=== PATIENT | female | born 1960 | race Caucasian/White ===

== ENCOUNTER 2017-11-27 14:10 | Emergency (ER) | payer BC ==
[2017-11-27 14:22] VITALS: BP 132/72
--- NOTE | 2017-11-27 14:44 | UC ---
Lety Oakes Emily, scribed for William Lund MD on 11/27/17 at 1437 . General HPI - HPI Summary HPI Summary: This patient is a 56 year old F presenting to urgent care with a chief complaint of sinus pressure that began 3 days ago. The patient rates the pain 2/ 10 in severity. Symptoms aggravated by nothing. Symptoms alleviated by nothing. Patient reports SMITH, vertigo, nausea, umbilical abd pain, loose stool, and fatigue. Patient denies fever, ear pain, myalgia, weakness, and numbness. - History of Current Complaint Chief Complaint: UCRespiratory Stated Complaint: SINUS ISSUE NAUSEA Time Seen by Provider: 11/27/17 14:28 Hx Obtained From: Patient Onset/Duration: Sudden Onset, Lasting Days Timing: Constant Onset Severity: Mild Current Severity: Mild Pain Intensity: 2 Character: Pressure Aggravating: Nothing Alleviating: Nothing Associated Signs & Symptoms: Positive: Headache, Nausea, Other - Positive vertigo and fatigue. Negative ear pain and myalgia. Negative: Fever - Allergy/Home Medications Allergies/Adverse Reactions: Allergies Allergy/AdvReac Type Severity Reaction Status Date / Time Morphine Allergy Severe Rash Verified 11/27/17 14:23 Prochlorperazine Allergy Severe DYSTONIC Verified 11/27/17 14:23 [From Compazine] REACTION, LIGHT SENSITIVITY Home Medications: Home Medications Yypkywt-Fcargptfbsafx-Iasmnpiz [Excedrin Extra Strength 250-250-65 mg] 1 tab PO DAILY PRN 11/27/17 [History Confirmed 11/27/17] Pseudoephedrine HCL ER TAB* [Sudafed 12 Hour*] 1 tab PO DAILY PRN 11/27/17 [ History Confirmed 11/27/17] PMH/Surg Hx/FS Hx/Imm Hx Previously Healthy: No Respiratory History: Asthma Neurological History: Migraine - Surgical History Surgical History: Yes Surgery Procedure, Year, and Place: TONSILLECTOMY, X2 - Family History Known Family History: Positive: Cardiac Disease, Hypertension - Social History Occupation: Employed Full-time Lives: With Family Alcohol Use: Occasionally Substance Use Type: None Smoking Status (MU): Never Smoked Tobacco - Immunization History Most Recent Influenza Vaccination: none Most Recent Tetanus Shot: unsure Most Recent Pneumonia Vaccination: no Review of Systems Constitutional: Fatigue, Other - Negative fever ENT: Sinus Pain/Tenderness, Other - Negative ear ache Gastrointestinal: Abdominal Pain, Nausea, Other - Positive loose stool Musculoskeletal: Other: - Negative myalgia Neurological: Headache, Other - Positive vertigo. Negative weakness and numbness All Other Systems Reviewed And Are Negative: Yes Physical Exam Triage Information Reviewed: Yes Vital Signs: Initial Vital Signs Temp 98.8 F 11/27/17 14:12 Pulse 78 11/27/17 14:12 Resp 16 11/27/17 14:12 BP 132/72 11/27/17 14:12 Pulse Ox 98 11/27/17 14:12 Vital Signs Reviewed: Yes - Additional Comments General: well-appearing, no pain distress Skin: warm, color reflects adequate perfusion, dry Head: normal Eyes: EOMI, MICHELE ENT: positive rhinorrhea Neck: supple, nontender Respiratory: CTA, breath sounds present Cardiovascular: RRR Abdomen: soft, nontender Bowel: present Musculoskeletal: normal, strength/ROM intact Neurological: normal, sensory/motor intact, A&O x3 Psychological: affect/mood appropriate Course/Dx - Differential Dx - Multi-Symptom Provider Diagnoses: SINUSITIS. VERTIGO Discharge - Discharge Plan Condition: Stable Disposition: HOME Prescriptions: Amoxicillin/Clavulanate TAB* [Augmentin TAB 875*] 875 mg PO BID #20 tab Meclizine HCl [Meclizine 25] 25 mg PO Q6H PRN #10 tab PRN Reason: Dizziness Ondansetron ODT TAB* [Zofran 4 MG Odt TAB*] 4 mg PO Q6H PRN #10 tab.odt PRN Reason: Nausea Patient Education Materials: Sinusitis (ED), Vertigo (ED) Referrals: Marycarmen Carney MD [Primary Care Provider] - Additional Instructions: FOLLOW UP WITH YOUR DOCTOR. GET RECHECKED FOR ANY WORSENING OF YOUR CONDITION OR QUESTIONS OR CONCERNS. The documentation as recorded by the Lety lora Emily accurately reflects the service I personally performed and the decisions made by me, William Lund MD.
== END 2017-11-27 14:50 | disposition home or self-care (01) ==
LOC: UCEAST 14:10
DX: J32.9 Chronic sinusitis, unspecified (principal); R42 Dizziness and giddiness; R11.0 Nausea; R53.83 Other fatigue; J45.909 Unspecified asthma, uncomplicated; G43.909 Migraine, unspecified, not intractable, without status migrainosus; Z90.89 Acquired absence of other organs; Z88.5 Allergy status to narcotic agent; Z88.8 Allergy status to other drugs, medicaments and biological substances
CPT/HCPCS: 99212; G0463

== ENCOUNTER 2019-02-27 14:24 | Emergency (ER) | payer BC ==
[2019-02-27 14:41] VITALS: BP 136/69
--- NOTE | 2019-02-27 15:46 | UC ---
Respiratory Complaint HPI - HPI Summary HPI Summary: SEVERAL WEEKS OF PERSISTENT COUGH AND PND. NO FEVER, N/V/D. NO EAR PAIN OR ST. SX NOT GETTING WORSE OR BETTER. HAS KNOWN H/O ALLERGIES. STARTED TAKING CLARITIN JUST TODAY. - History of Current Complaint Chief Complaint: UCRespiratory Stated Complaint: COUGH Time Seen by Provider: 02/27/19 14:39 Hx Obtained From: Patient Onset/Duration: Gradual Onset, Lasting Weeks, Still Present Timing: Constant Severity Initially: Moderate Severity Currently: Moderate Pain Intensity: 0 Pain Scale Used: 0-10 Numeric Character: Cough: Nonproductive Aggravating Factors: Nothing Alleviating Factors: Nothing Associated Signs And Symptoms: Positive: Nasal Congestion. Negative: Dyspnea, Fever, Chills, Wheezing - Allergies/Home Medications Allergies/Adverse Reactions: Allergies Allergy/AdvReac Type Severity Reaction Status Date / Time morphine Allergy Rash Verified 02/27/19 14:41 prochlorperazine Allergy Altered Verified 02/27/19 14:41 [From Compazine] Mental Status PMH/Surg Hx/FS Hx/Imm Hx Respiratory History: Asthma - Surgical History Surgical History: Yes Surgery Procedure, Year, and Place: TONSILLECTOMY, X2, wisdom teeth' - Family History Known Family History: Positive: Cardiac Disease, Hypertension - Social History Alcohol Use: Occasionally Substance Use Type: None Smoking Status (MU): Never Smoked Tobacco - Immunization History Most Recent Influenza Vaccination: none Most Recent Tetanus Shot: unsure Most Recent Pneumonia Vaccination: no Review of Systems All Other Systems Reviewed And Are Negative: Yes Constitutional: Positive: Negative ENT: Positive: Nasal Discharge, Other - POST NASAL DRAINAGE Respiratory: Positive: Cough Cardiovascular: Positive: Negative Gastrointestinal: Positive: Negative Physical Exam Triage Information Reviewed: Yes Appearance: Well-Appearing, No Pain Distress, Well-Nourished Vital Signs: Initial Vital Signs Temp 98.8 F 02/27/19 14:36 Pulse 73 02/27/19 14:36 Resp 16 02/27/19 14:36 BP 136/69 02/27/19 14:36 Pulse Ox 96 02/27/19 14:36 Vital Signs Reviewed: Yes Eyes: Positive: Conjunctiva Clear ENT: Positive: Hearing grossly normal, Pharynx normal, TMs normal Neck: Positive: Supple, Nontender, No Lymphadenopathy Respiratory Exam: Normal Cardiovascular Exam: Normal Abdomen Description: Positive: Soft Musculoskeletal: Positive: No Edema Neurological: Positive: Alert Psychological: Positive: Age Appropriate Behavior Skin: Negative: Rashes Respiratory Course/Dx - Course Course Of Treatment: SYMPTOMS SEEM MORE ALLERGIC THAN INFECTIOUS. WILL TX SUCH WITH ALBUTEROL, FLONASE AND PREDNISONE AND OTC ANTIHISTAMINE. PT TO FOLLOW-UP IF NOT IMPROVING WITH THIS TREATMENT. - Differential Dx/Diagnosis Provider Diagnosis: Allergic cough Discharge - Sign-Out/Discharge Documenting (check all that apply): Patient Departure All imaging exams completed and their final reports reviewed: No Studies - Discharge Plan Condition: Stable Disposition: HOME Prescriptions: Albuterol HFA INHALER* [Ventolin HFA Inhaler*] 2 puff INH Q4H PRN #1 mdi PRN Reason: Shortness Of Breath Fluticasone NASAL SPRAY 50MCG* [Flonase NASAL SPRAY 50MCG*] 2 spray BOTH NARES DAILY #1 btl predniSONE TAB* [Deltasone 20 MG TAB*] 40 mg PO DAILY #10 tab Patient Education Materials: Allergic Rhinitis (ED) Referrals: Marycarmen Carney MD [Primary Care Provider] - If Needed Additional Instructions: YOUR SYMPTOMS SEEM MORE ALLERGICALLY MEDIATED THAN INFECTIOUS. CONTINUE TO TAKE YOUR LORATADINE DAILY. USE ALBUTEROL INHALER MORNING AND NIGHT SCHEDULED AND THEN EVERY 4 HOURS IF NEEDED FOR COUGH OR WHEEZE. SHORT BURST OF PREDNISONE TO HELP WITH AIRWAY INFLAMMATION. FLONASE TO HELP WITH DRAINAGE AND CONGESTION. FOLLOW-UP WITH YOUR SMT MACHINE OPERATOR. IF YOU ARE NOT IMPROVING WITH THIS TREATMENT OR HAVE ANY QUESTIONS YOU CAN CALL ME. I AM HERE THIS MONDAY AND MONDAY EVENING AND NEXT MONDAY AND MONDAY MORNING. - Billing Disposition and Condition Condition: STABLE Disposition: Home
== END 2019-02-27 15:25 | disposition home or self-care (01) ==
LOC: UCEAST 14:24
DX: R05 Cough (principal)
CPT/HCPCS: 99212; G0463

== ENCOUNTER 2019-10-23 10:29 | Emergency (ER) | payer BC ==
--- OUTSIDE RECORDS SUMMARY | 2019-10-23 10:56 | XMS REPORT | Continuity of Care Document ---
:1960 External Reference #:[id number] Author Name Becka Hernandez DNP, RN, HOMICIDE SQUAD SERGEANT-BC (transmitted by agent of provider Latia Lu) Address [address] [facility] [place], [address] [address] Care Team Providers Name Role Phone Marycarmen Carney MD - Internal Care Team Information [employer] Officer [phone] Medicine Problems Active Problems Provider Date Localized, primary osteoarthritis Beckie Morgan M.D. Onset: 10/22/2018 Obstructive sleep apnea syndrome Becka Hernandez DNP, RN, HOMICIDE SQUAD SERGEANT-BC Onset: 10/2019 Note: Severe. HST 10/31/18: AHI 40.9/hour, worse supine 50.5/hour, kadi oxygen 86% Social History Type Date Description Comments Sex Unknown Tobacco Use Start: Unknown Never Smoked Cigarettes Smoking Status Reviewed: 09/25/19 Never Smoked Cigarettes ETOH Use Occasionally consumes alcohol Tobacco Use Start: Unknown Patient has never smoked Recreational Drug Use Denies Drug Use Exercise Type/Frequency Exercises sporadically Exercise Type/Frequency Walks sporadically Exercise Type/Frequency Exercises at a health club sporadically Allergies, Adverse Reactions, Alerts Active Allergies Reaction Severity Comments Date Morphine rash 10/22/2018 Compazine muscle spasms 10/22/2018 Medications Active Medications SIG Qnty Indications Ordering Provider Date Bupropion HCL ER (SR) 1 by mouth one Marilin Allen, time per day CLINICAL EDUCATOR 100mg Tablets ER 12HR Fluoxetine HCL 1 by mouth one Marilin Allen, 20mg time per day CLINICAL EDUCATOR Capsules Simvastatin 1 by mouth one Marycarmen Carney, 40mg Tablets time per day MD Medications Administered in Office Medication SIG Qnty Indications Ordering Provider Date Depomedrol 40MG Beckie Morgan M.D. 10/22/2018 Injection Immunizations Description No Information Available Vital Signs Date Vital Result Comment 09/25/2019 2:45pm Height 63 inches 5'3" Weight 187.50 lb Heart Rate 62 /min BP Systolic Sitting 148 mmHg Rue reg cuff BP Diastolic Sitting 98 mmHg Rue reg cuff O2 % BldC Oximetry 97 % On Ra BMI (Body Mass Index) 33.2 kg/m2 06/19/2019 2:14pm Height 63 inches 5'3" Weight 190.00 lb Heart Rate 60 /min BP Systolic 126 mmHg BP Diastolic 80 mmHg Respiratory Rate 16 /min O2 % BldC Oximetry 98 % BMI (Body Mass Index) 33.7 kg/m2 Results Description No Information Available Procedures Description No Information Available Medical Devices Description No Information Available Encounters Type Date Location Provider Dx Diagnosis Office Visit 06/19/2019 Pulmonology And Becka Hernandez, G47.33 Obstructive sleep 2:[facility]p [facility], CATHLEEN apnea (adult) [facility] (pediatric) Assessments Date Code Description Provider 09/25/2019 G47.33 Obstructive sleep apnea (adult) Becka Hernandez DNP, RN, CATHLEEN (pediatric) 06/19/2019 G47.33 Obstructive sleep apnea (adult) Becka Hernandez DNP RN, DREW-HAL (pediatric) Plan of Treatment Future Appointment(s):09/29/2020 2:15 pm - Becka Hernandez DNP, RN, DREW-HAL at [facility]09/25/2019 - Becka Hernandez DNP, RN, DREW- BCG47.33 Obstructive sleep apnea (adult) (pediatric)Comments:Severe. HST : AHI 40.9/hour, worse supine 50.5/hour, kadi oxygen 86%On CPAP auto 6-15 cm AHI 2.7/hour, normal.Follow up:1 yearRecommendations:Continue PAP device, Benefitting and compliant with treatment. Cleaning Wipe off mask daily (baby wipe-no scent, or warm water) Clean mask, tubing, filter, and water chamber weekly in mild no scent dish soap and water. Hang to dry. If you have any sleepiness while driving you MUST avoid operating a vehicle or machinery. If you have difficulty with your equipment, or need to replace your mask or hoses, please contact your homecare agency. A weight change of 20 pounds or more may have an effect onyour equipment; if you are experiencing problems please call for an appointment. If you have any further questions, please call the [facility] at [phone]. Functional Status Description No Information Available Mental Status Description No Information Available Referrals Description No Information Available
[2019-10-23 11:34] LABS: ABS Eosinophils 0.1 10^3/ul (0-0.6); ABS Lymphocytes 1.1 10^3/ul (1.0-4.8); ABS Monocytes 0.4 10^3/ul (0-0.8); ABS Neutrophils 7.8 10^3/ul (1.5-7.7); Eosinophil % 0.6 %; Hematocrit 40 % (35-47); Hemoglobin 13.9 g/dL (12.0-16.0); Lymphocyte % 11.6 %; Mean Corpuscular HGB Conc 34 g/dL (31-36); Mean Corpuscular Hemoglobin 30 pg (27-31); Mean Corpuscular Volume 87 fL (80-97); Mean Platelet Volume 8.4 fL (7.4-10.4); Platelet Count 266 10^3/uL (150-450); Red Blood Count 4.62 10^6 /uL (3.70-4.87); Red Cell Distribution Width 13 % (10-15); White Blood Count 9.4 10^3/uL (3.5-10.8)
[2019-10-23 12:23] LABS: ALT 22 U/L (7-52); AST 18 U/L (13-39); Albumin 4.4 g/dL (3.2-5.2); Albumin/Globulin Ratio 1.7 (1-3); Alkaline Phosphatase 50 U/L (34-104); Anion Gap 7 mmol/L (2-11); BUN/Creatinine Ratio 16.7 (8-20); Blood Urea Nitrogen 19 mg/dL (6-24); C Reactive Protein < 1.00 mg/L (<8.01); CO2 Carbon Dioxide 26 mmol/L (22-32); Calcium 9.3 mg/dL (8.6-10.3); Chloride 105 mmol/L (101-111); EGFR Non-African American 48.8 (>60); Globulin 2.6 g/dL (2-4); Glucose 110 mg/dL (70-100); Potassium 4.4 mmol/L (3.5-5.0); Sodium 138 mmol/L (135-145)
--- NOTE | 2019-10-23 15:28 | ED ---
Abdominal Pain/Female - HPI Summary HPI Summary: 58 year old female presents to the ED with a chief complaint of abdominal pain starting 0300 today, resolved upon arrival. Patient's pain became much worse when she arrived at work. Her pain was severe at around 0930, radiating to her back. She vomited at 0930 and 1430. Patient reports chills and flatulence. Normal bowel movement. PMHx of HLD, anxiety. PSHx of 2 C-sections. Patient does not drink alcohol or smoke tobacco. No family history of DM, HTN, or CA. - History of Current Complaint Chief Complaint: EDAbdPain Stated Complaint: RT FLANK PAIN PER PT Time Seen by Provider: 10/23/19 15:12 Hx Obtained From: Patient ?: No Onset/Duration: Sudden Onset - 0300 this morning., Lasting Hours, Resolved Timing: Constant Severity Initially: Severe Severity Currently: Severe Pain Intensity: 9 Pain Scale Used: 0-10 Numeric Location: Discrete At: RLQ Radiates: Yes Radiates to: Back Character: Sharp Alleviating Factor(s): Spontaneous Resolution Associated Signs and Symptoms: Positive: Vomiting, Other: - flatulence, chills Allergies/Adverse Reactions: Allergies Allergy/AdvReac Type Severity Reaction Status Date / Time morphine Allergy Rash Verified 02/27/19 14:41 prochlorperazine Allergy Altered Verified 02/27/19 14:41 [From Compazine] Mental Status PMH/Surg Hx/FS Hx/Imm Hx Endocrine/Hematology History: Denies: Hx Diabetes, Hx Thyroid Disease Cardiovascular History: Denies: Hx Hypertension, Hx Pacemaker/ICD Respiratory History: Reports: Hx Asthma - mild; no meds, no hospitalization in past Denies: Hx Chronic Obstructive Pulmonary Disease (COPD) GI History: Denies: Hx Ulcer Sensory History: Denies: Hx Hearing Aid Psychiatric History: Denies: Hx Panic Disorder - Cancer History Hx Chemotherapy: No Hx Radiation Therapy: No - Surgical History Surgery Procedure, Year, and Place: TONSILLECTOMY, X2, wisdom teeth' Infectious Disease History: No Infectious Disease History: Denies: Hx Clostridium Difficile, Hx Hepatitis, Hx Human Immunodeficiency Virus (HIV), Hx of Known/Suspected MRSA, Hx Shingles, Hx Tuberculosis, Hx Known/ Suspected VRE, Hx Known/Suspected VRSA, History Other Infectious Disease, Traveled Outside the [place] in Last 30 Days - Family History Known Family History: Positive: Cardiac Disease, Hypertension - Social History Alcohol Use: Occasionally Substance Use Type: Reports: None Smoking Status (MU): Never Smoked Tobacco Review of Systems Positive: Chills Positive: Abdominal Pain - RLQ radiating to back, Vomiting, Other - flatulence All Other Systems Reviewed And Are Negative: Yes Physical Exam - Summary Physical Exam Summary: VITAL SIGNS: Reviewed. GENERAL: Patient is a well-developed and nourished female who is lying comfortable in the stretcher. Patient is not in any acute respiratory distress. HEAD AND FACE: Normocephalic and atraumatic. EYES: PERRLA, EOMI x 2, No injected conjunctiva. EARS: Hearing grossly intact. Ear canals and tympanic membranes are WNL. MOUTH: Oropharynx within normal limits. NECK: Supple, trachea is midline, no adenopathy, no JVD. CHEST: Symmetric, no tenderness at palpation. LUNGS: Clear to auscultation bilaterally. No wheezing or crackles. CVS: RRR, S1 and S2 present, no murmurs or gallops appreciated. ABDOMEN: Soft. No signs of distention. Positive bowel sounds. No rebound, and no masses palpated. No abdominal bruit or pulsations.RLQ tenderness with guarding. EXTREMITIES: FROM in all major joints, no edema, no cyanosis or clubbing. NEURO: Alert and oriented x 3. No acute neurological deficits. Speech is normal. SKIN: Dry and warm. Triage Information Reviewed: Yes Vital Signs On Initial Exam: Initial Vitals Temp Pulse Resp BP Pulse Ox 98.6 F 60 14 142/76 98 10/23/19 10:49 10/23/19 10:49 10/23/19 10:49 10/23/19 10:49 10/23/19 10:49 Vital Signs Reviewed: Yes Procedures - Sedation Patient Received Moderate/Deep Sedation with Procedure: No Diagnostics - Vital Signs Vital Signs Temp Pulse Resp BP Pulse Ox 10/23/19 14:45 100 F 54 16 123/62 5 10/23/19 12:25 98.9 F 54 16 108/59 96 10/23/19 10:49 98.6 F 60 14 142/76 98 - Laboratory Lab Results: Lab Results 10/23/19 10/23/19 Range/Units 11:23 11:23 WBC 9.4 (3.5-10.8) 10^3/uL RBC 4.62 (3.70-4.87) 10^6 /uL Hgb 13.9 (12.0-16.0) g/dL Hct 40 (35-47) % MCV 87 (80-97) fL MCH 30 (27-31) pg MCHC 34 (31-36) g/dL RDW 13 (10-15) % Plt Count 266 (150-450) 10^3/uL MPV 8.4 (7.4-10.4) fL Neut % (Auto) 83.6 % Lymph % (Auto) 11.6 % Harvey % (Auto) 3.9 % Eos % (Auto) 0.6 % Baso % (Auto) 0.3 % Absolute Neuts (auto) 7.8 H (1.5-7.7) 10^3/ul Absolute Lymphs (auto) 1.1 (1.0-4.8) 10^3/ul Absolute Monos (auto) 0.4 (0-0.8) 10^3/ul Absolute Eos (auto) 0.1 (0-0.6) 10^3/ul Absolute Basos (auto) 0.0 (0-0.2) 10^3/ul Absolute Nucleated RBC 0.0 10^3/ul Nucleated RBC % 0.0 Sodium 138 (135-145) mmol/L Potassium 4.4 (3.5-5.0) mmol/L Chloride 105 (101-111) mmol/L Carbon Dioxide 26 (22-32) mmol/L Anion Gap 7 (2-11) mmol/L BUN 19 (6-24) mg/dL Creatinine 1.14 H (0.51-0.95) mg/dL Est GFR ( Amer) 59.0 (>60) Est GFR (Non-Af Amer) 48.8 (>60) BUN/Creatinine Ratio 16.7 (8-20) Glucose 110 H (70-100) mg/dL Calcium 9.3 (8.6-10.3) mg/dL Total Bilirubin 0.50 (0.2-1.0) mg/dL AST 18 (13-39) U/L ALT 22 (7-52) U/L Alkaline Phosphatase 50 (34-104) U/L C-Reactive Protein < 1.00 (<8.01) mg/L Total Protein 7.0 (6.4-8.9) g/dL Albumin 4.4 (3.2-5.2) g/dL Globulin 2.6 (2-4) g/dL Albumin/Globulin Ratio 1.7 (1-3) Lipase 12 (11.0-82.0) U/L Result Diagrams: 10/23/19 11:23 10/23/19 11:23 Lab Statement: Any lab studies that have been ordered have been reviewed, and results considered in the medical decision making process. - CT APCT CT Interpretation Completed By: Radiologist Summary of CT Findings: Abdominopelvic CT impression: No CT evidence for acute appendicitis or other acute inflammatory changes in the gastrointestinal tract. An ED physician has reviewed this report. Abdominal Pain Fem Course/Dx - Course Course Of Treatment: 58 year old female presents to the ED with a chief complaint of abdominal pain starting 0300 today, resolved upon arrival. Patient' s pain became much worse when she arrived at work. Her pain was severe at around 0930, radiating to her back. She vomited at 0930 and 1430. Patient reports chills and flatulence. Normal bowel movement. PMHx of HLD, anxiety. PSHx of 2 C-sections. Patient does not drink alcohol or smoke tobacco. No family history of DM, HTN, or CA. Blood work without any significant abnormality except for creatinine 1.14, glucose 110, urinalysis is negative for UTI. Abdominopelvic CT impression: No CT evidence for acute appendicitis or other acute inflammatory changes in the gastrointestinal tract. At this point the patient is feeling better and she has no complaints. I discussed all the findings and test results with the patient. Patient was instructed to return to the emergency room immediately if any of the symptoms return or worsen. Plan of care was discussed with the patient and understands and agrees. All questions were answered at patient satisfaction. There were no further complaints or concerns. Lung exam before discharge: CTA B/L. Good air exchange. No wheezing or crackles heard. CVS: S1 and S2 present. No murmurs appreciated. Patient is alert and oriented x 3. Patient is hemodynamically stable. Patient will be discharged home with follow up PCP in the next 2-3 days - Diagnoses Differential Diagnosis: Positive: Appendicitis, Constipation, Diverticulitis, Renal Colic, Urinary Tract Infection Provider Diagnoses: Lower abdominal pain Discharge ED - Sign-Out/Discharge Documenting (check all that apply): Patient Departure - discharge - Discharge Plan Condition: Stable Disposition: HOME Patient Education Materials: Acute Abdominal Pain (ED) Referrals: Marycarmen Carney MD [Primary Care Provider] - Additional Instructions: Follow up with your primary care provider in 2-3 days. Return to the Emergency Department if your symptoms change or worsen. - Billing Disposition and Condition Condition: STABLE Disposition: Home - Attestation Statements Document Initiated by Scribe: Yes Documenting Scribe: Leandro Caruso Provider For Whom Emili is Documenting (Include Credential): Reilly Galarza MD Scribe Attestation: Leandro Oakes scribed for Reilly Galarza MD on 10/24/19 at 1015. Scribe Documentation Reviewed: Yes Provider Attestation: The documentation as recorded by the renataibeLeandro accurately reflects the service I personally performed and the decisions made by , Reilly Galarza MD Status of Scribe Document: Viewed
[2019-10-23] MEDS ORDERED: Iodixanol* (CONTRAST) 320 MG/ML 100 ML SDV IV ONE (15:32)
[2019-10-23 16:00] LABS: Urine Appearance Clear; Urine Bilirubin Negative (Negative); Urine Blood 2+ (Negative); Urine Color Yellow; Urine Glucose Negative (Negative); Urine Ketones Trace (Negative); Urine Nitrite Negative (Negative); Urine Protein Negative (Negative); Urine Specific Gravity 1.013 (1.010-1.030); Urine Urobilinogen Negative (Negative)
[2019-10-23 16:02] LABS: Urine Bacteria Absent (Absent); Urine Red Blood Cell 3+(>10/hpf) (Absent); Urine White Blood Cell Absent (Absent)
[2019-10-23 17:51] VITALS: BP 138/68
== END 2019-10-23 17:35 | disposition home or self-care (01) ==
LOC: ED 10:29
DX: R10.30 Lower abdominal pain, unspecified (principal); E78.5 Hyperlipidemia, unspecified; F41.9 Anxiety disorder, unspecified; Z88.5 Allergy status to narcotic agent; Z88.8 Allergy status to other drugs, medicaments and biological substances
CPT/HCPCS: 36415; 74177; 80053; 81003; 81015; 83690; 85025; 86140; 99282; Q9967